=== PATIENT | male | born 1995 | race Caucasian/White ===

== ENCOUNTER 2017-09-29 15:39 | Emergency (ER) | payer OTHER ==
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
[2017-09-29 15:48] VITALS: BP 138/91; PULSE 88; TEMP 98.1; BMI 37.3
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
== END 2017-09-29 17:09 | disposition home or self-care (01) ==
LOC: JERFT 15:39
DX: H57.11 Ocular pain, right eye (principal); Y04.2XXA Assault by strike against or bumped into by another person, initial encounter; Y93.89 Activity, other specified; Y92.89 Other specified places as the place of occurrence of the external cause; Y99.8 Other external cause status; Y07.11 Biological father, perpetrator of maltreatment and neglect
CPT/HCPCS: 99281-25

== ENCOUNTER 2021-10-29 05:22 | Emergency (ER) | payer OTHER ==
[2021-10-29 05:46] VITALS: TEMP 97.5; BMI 35.0
[2021-10-29 06:23] LABS: BASO % 0.9 % (0-2.0); EOS % 2.2 % (0-4.5); HEMOGLOBIN 15.6 GM/dL (11.7-16.9); LYMPH % 20.4 % (8-40); MCH 31.1 pg (25.7-33.7); MCHC 34.7 g/dl (32.0-35.9); MEAN CELL VOLUME 89.6 fl (80-96); MEAN PLT VOLUME 8.3 fl (7.5-11.1); MONO % 17.3 % (3.8-10.2); NEUT % 59.2 % (42.8-82.8); PLATELET COUNT 245 10^3/uL (134-434); RBC 5.02 M/mm3 (4.00-5.60); RDW 13.7 % (11.9-15.9); WHITE BLOOD COUNT 4.7 K/mm3 (4.0-10.0)
[2021-10-29 06:25] LABS: CHLORIDE 106 mmol/L (98-107); SODIUM 139 mmol/L (136-145)
[2021-10-29 06:27] LABS: ANION GAP 7 MMOL/L (8-16); BLOOD UREA NITROGEN 10.6 mg/dL (7-18); CALCIUM 8.8 mg/dL (8.5-10.1); CO2 26 mmol/L (21-32)
[2021-10-29 06:28] LABS: ALBUMIN 3.7 g/dl (3.4-5.0); GLUCOSE,RANDOM 111 mg/dL (74-106)
[2021-10-29 06:30] LABS: SGPT/ALT 62 U/L (13-61)
[2021-10-29 06:31] LABS: CREATININE 0.7 mg/dL (0.55-1.3); SGOT/AST 31 U/L (15-37)
[2021-10-29 06:32] LABS: BILIRUBIN,TOTAL 0.4 mg/dL (0.2-1); TOT PROT 7.2 g/dl (6.4-8.2)
[2021-10-29 06:33] LABS: ALK PHOS 78 U/L (45-117)
[2021-10-29 09:28] VITALS: BP 115/76; PULSE 69
== END 2021-10-29 09:28 | disposition home or self-care (01) ==
LOC: JER 05:22
DX: R20.2 Paresthesia of skin (principal)
CPT/HCPCS: 36415; 70450-TC; 80053; 84484; 85025; 93005; 93010; 99285-25

== ENCOUNTER 2022-09-07 04:32 | Day surgery (SDC) | payer OTHER ==
[2022-08-25 17:53] VITALS: BMI 37.9
[~2022-09-07 04:32] MED LIST: DEXAMETHASONE SOD PHOSPHATE 10 MG/1 ML VIAL IVPUSH ONE; IOHEXOL 180 MG/1 ML ML IJ ONE
[2022-09-07] MEDS ORDERED: LIDOCAINE HCL/PF 1% SDV 5ML VIAL ONE (07:42)
[2022-09-07] MEDS ORDERED: DEXAMETHASONE SOD PHOSPHATE 10 MG/1 ML VIAL ONE (07:43)
[2022-09-07 10:57] VITALS: RESP 20
[2022-09-07] MEDS ORDERED: SODIUM CHLORIDE 0.9% P/F 10 ML VIAL IJ ONE (11:22)
[2022-09-07] MEDS ORDERED: LIDOCAINE HCL 1% PRESERVATIVE FREE - 30ML VIAL IJ ONE ×2 (11:42)
[2022-09-07] MEDS ORDERED: IOHEXOL 180 MG/1 ML ML IJ ONE ×3 (11:46→12:09)
[2022-09-07] MEDS ORDERED: DEXAMETHASONE SOD PHOSPHATE 10 MG/1 ML VIAL IVPUSH ONE (12:11)
[2022-09-07 13:04] VITALS: BP 110/72; PULSE 59; TEMP 97.5
== END 2022-09-07 13:00 | disposition home or self-care (01) ==
LOC: JASU-SURG 04:32
PROVIDERS: ATTEND Pain Medicine Pain Medicine
PROC: B01BYZZ Fluoroscopy of Spinal Cord using Other Contrast (ICD-10-PCS; 2022-09-07)
PROC: 3E0R33Z Introduction of Anti-inflammatory into Spinal Canal, Percutaneous Approach (ICD-10-PCS; principal; 2022-09-07 10:30)
DX: M54.14 Radiculopathy, thoracic region (principal)
CPT/HCPCS: 76000-TC-FY; J1100

== ENCOUNTER 2023-02-14 23:41 | Emergency (ER) | payer OTHER ==
[2023-02-14 23:45] VITALS: BMI 37.1
[2023-02-15 02:08] LABS: PH,URINE 5.5 (5.0-8.0); URINE APPEARANCE CLEAR; URINE BILIRUBIN NEGATIVE (NEGATIVE); URINE COLOR YELLOW; URINE GLUCOSE (UA) NEGATIVE (NEGATIVE); URINE KETONE NEGATIVE (NEGATIVE); URINE LEUK ESTERASE NEGATIVE (NEGATIVE); URINE NITRITE NEGATIVE (NEGATIVE); URINE PROTEIN NEGATIVE (NEGATIVE); URINE UROBILINOGEN 0.2 mg/dL (0.2-1.0)
[2023-02-15 03:50] VITALS: BP 116/78; PULSE 70; RESP 16; TEMP 98.5
[2023-02-15] MEDS ORDERED: KETOROLAC TROMETHAMINE 30 MG/1 ML VIAL IM ONE (05:16)
[2023-02-15] MEDS ORDERED: LIDOCAINE 5% TOPICAL PATCH TP ONE (05:16)
[2023-02-15] MEDS ORDERED: LIDOCAINE 5% TOPICAL PATCH ONE (05:18)
[2023-02-15] MEDS ORDERED: KETOROLAC TROMETHAMINE 30 MG/1 ML VIAL ONE (05:18)
[2023-02-15] MEDS ORDERED: LIDOCAINE PATCH REMOVAL MC SCH (22:00)
== END 2023-02-15 05:46 | disposition home or self-care (01) ==
LOC: JER 23:41
PROC: 3E0233Z Introduction of Anti-inflammatory into Muscle, Percutaneous Approach (ICD-10-PCS; principal; 2023-02-14)
DX: I86.1 Scrotal varices (principal); N50.811 Right testicular pain; M54.50 Low back pain, unspecified
CPT/HCPCS: 76870-TC; 81003; 99284-25

== ENCOUNTER 2023-09-29 20:08 | Emergency (ER) | payer OTHER ==
[2023-09-29 20:17] VITALS: BP 111/55; PULSE 55; RESP 18; TEMP 98.3; BMI 38.7
== END 2023-09-29 21:27 | disposition home or self-care (01) ==
LOC: JERFT 20:08 → JER 20:08 → JERFT 21:27
DX: R06.02 Shortness of breath (principal)
CPT/HCPCS: 71046-TC-FY; 99283-25